=== PATIENT | male | born 1980 | race Caucasian/White ===

== ENCOUNTER 2017-01-30 20:11 | Emergency (ER) | payer SELFPAY ==
[~2017-01-30 20:11] MED LIST: IBUP-232 PO; TYLE3 PO
[2017-01-30 20:14] VITALS: BP 131/74; PULSE 80; RESP 16; TEMP 98.7; O2SAT 98
[2017-01-30] MEDS ORDERED: HYDR-4361 (20:32)
--- NOTE | 2017-01-30 20:46 | PD ---
HPI Chief Complaint: Skin Problem Time Seen by Provider: 20:46 Travel History International Travel<30 days: No Contact w/Intl Traveler<30days: No Traveled to known affect area: No History of Present Illness HPI 36-year-old male with no significant medical history presents to emergency department for evaluation of right foot erythema and edema. Patient states he got bit by something on his right fifth toe 2 days ago and has developed increasing erythema and edema of the foot that is warm to touch. He has also developed right inguinal lymphadenopathy. Denies any fever or chills. 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 He has no other symptoms at this time to report. He is up-to-date on his tetanus vaccination. [facility]LY [facility] Past Medical History Medical History: Denies Significant Hx Diminished Hearing: No Social History Alcohol Use: No Tobacco Use: No Substance Use: No Allergies-Medications (Allergen,Severity, Reaction): Coded Allergies: No Known Allergies (Unverified Allergy, Unknown, 01/30/17) Reported Meds & Prescriptions Reported Meds & Active Scripts Active Ibuprofen 800 Mg Tab 800 Mg PO Q8H PRN Keflex (Cephalexin) 500 Mg Cap 500 Mg PO Q6H 5 Days Bactrim DS (Sulfamethoxazole-Trimethoprim) 800-160 Mg Tab 1 Tab PO BID Reported Hydrocodone-Acetamin 10-300 mg (Hydrocodone/Acetaminophen) 10 Mg-300 Mg Tablet BID Review of Systems Except as stated in HPI: all other systems reviewed are Neg Physical Exam Narrative GENERAL: Well-nourished, well-developed male patient, ambulatory and in no acute distress SKIN: Focused skin assessment warm/dry. Scaling, well-demarcated skin on the dorsal aspect of bilateral feet and between the toes. On the right foot there is erythema and edema extending from the right fifth digit to the midfoot. There is palpable right inguinal lymphadenopathy. HEAD: Normocephalic. EYES: No scleral icterus. No injection or drainage. NECK: Supple, trachea midline. No JVD or lymphadenopathy. CARDIOVASCULAR: Regular rate and rhythm without murmurs, gallops, or rubs. RESPIRATORY: Breath sounds equal bilaterally. No accessory muscle use. GASTROINTESTINAL: Abdomen soft, non-tender, nondistended. MUSCULOSKELETAL: No cyanosis, or edema. BACK: Nontender without obvious deformity. No CVA tenderness. Data Data Last Documented VS Vital Signs Date Time Temp Pulse Resp B/P (MAP) Pulse Ox O2 Delivery O2 Flow Rate FiO2 01/30/17 22:21 01/30/17 20:14 98.7 80 16 98 Room Air Orders Orders Clindamycin 600 Mg/Ns Premix (Cleocin 60 (01/30/17 21:00) Ketorolac Inj (Toradol Inj) (01/30/17 21:15) Ed Discharge Order (01/30/17 22:06) MDM Medical Decision Making Medical Screen Exam Complete: Yes Emergency Medical Condition: Yes Medical Record Reviewed: Yes Differential Diagnosis Cellulitis versus contact dermatitis versus local reaction versus abscess Narrative Course 36-year-old male presents to emergency department for evaluation of the erythema and edema of the right foot. Physical exam and history is consistent with a cellulitis. Patient has IV in place already by [facility]. I'll give him 1 dose of IV antibiotic here and start him on oral antibiotics outpatient. He is also requesting something for the fungal appearing rash on his feet. I will give him a prescription for this as well. He is encouraged follow-up with primary care provider and return immediately with any acute worsening of symptoms. Diagnosis Primary Impression: Cellulitis of right foot Referrals: Primary Care Physician Patient Instructions: Cellulitis (ED), General Instructions Additional Instructions: Elevate to reduce pain and swelling Follow-up with a primary care provider Start your antibiotic tomorrow and take it until it is all gone Return immediately with any acute or significant Med/Other Pt SpecificInfo: Prescription(s) given Scripts Clobetasol Topical (Clobetasol Topical) 0.05% Oint 1 APPLIC TOPICAL BID, #45 GM 0 Refills Prov: Pily Rooney 01/30/17 Ibuprofen (Ibuprofen) 800 Mg Tab 800 MG PO Q8H Y for PAIN SCALE 1 TO 10, #30 TAB 0 Refills Prov: Pily Rooney 01/30/17 Cephalexin (Keflex) 500 Mg Cap 500 MG PO Q6H for Infection for 5 Days, #20 CAP 0 Refills Prov: Pily Rooney 01/30/17 Sulfamethoxazole-Trimethoprim (Bactrim DS) 800-160 Mg Tab 1 TAB PO BID for Infection, #20 TAB 0 Refills Prov: Pily Rooney 01/30/17 Disposition: 01 DISCHARGE HOME Condition: Stable Pily Rooney Jan 30, 2017 20:46
[2017-01-30] MEDS ORDERED: CLINDAMYCIN 600 MG/NS PREMIX 50 ML IV ONE (21:00)
[2017-01-30] MEDS ORDERED: KETOROLAC TROMETHAMINE 30 MG/ML (IVP) VIAL IV PUSH ONE (21:15)
[2017-01-30] MEDS ORDERED: BACT800T5 PO (22:05)
[2017-01-30] MEDS ORDERED: IBUP1TAB7 PO (22:05)
[2017-01-30] MEDS ORDERED: CEPH-460 PO (22:05)
--- NOTE | 2017-01-30 22:26 | PD ---
Physical Exam Date Seen by Provider: Jan 30, 2017 Narrative Patient is here with pain and swelling of his right fifth toe. Data Data Last Documented VS Vital Signs Date Time Temp Pulse Resp B/P (MAP) Pulse Ox O2 Delivery O2 Flow Rate FiO2 01/30/17 22:21 01/30/17 20:14 98.7 80 16 98 Room Air Orders Orders Clindamycin 600 Mg/Ns Premix (Cleocin 60 (01/30/17 21:00) Ketorolac Inj (Toradol Inj) (01/30/17 21:15) Ed Discharge Order (01/30/17 22:06) MDM Supervised Visit with MAYURI: Yes Narrative Course I, Dr. Brooke, have reviewed the advance practice practitioner's documentation and am in agreement, met with the patient face to face, made the diagnosis, and the medical decision making was done by me. *My assessment and Findings: Patient comes in with a painful, swollen, erythematous right fifth toe. It looks like cellulitis. Please see Pily Rooney NP's note for results of laboratory and radiographic evaluation, ED course, final diagnosis and disposition Diagnosis Primary Impression: Cellulitis of right foot Referrals: Primary Care Physician Patient Instructions: General Instructions, Cellulitis (ED) Departure Forms: Tests/Procedures Additional Instruction: Elevate to reduce pain and swelling Follow-up with a primary care provider Start your antibiotic tomorrow and take it until it is all gone Return immediately with any acute or significant Scripts Ibuprofen (Ibuprofen) 800 Mg Tab 800 MG PO Q8H Y for PAIN SCALE 1 TO 10, #30 TAB 0 Refills Prov: Pily Rooney 01/30/17 Cephalexin (Keflex) 500 Mg Cap 500 MG PO Q6H for Infection for 5 Days, #20 CAP 0 Refills Prov: Pily Rooney 01/30/17 Sulfamethoxazole-Trimethoprim (Bactrim DS) 800-160 Mg Tab 1 TAB PO BID for Infection, #20 TAB 0 Refills Prov: Pily Rooney 01/30/17 Disposition: 01 DISCHARGE HOME Condition: Stable Yessenia Brooke MD Jan 30, 2017 22:26
[2017-01-30] MEDS ORDERED: CLOB0.05 TOPICAL (22:37)
== END 2017-01-30 22:51 | disposition home or self-care (01) ==
LOC: NEPE 20:11
DX: L03.115 Cellulitis of right lower limb (principal); Z86.14 Personal history of Methicillin resistant Staphylococcus aureus infection
CPT/HCPCS: 99284; J1885